=== PATIENT | male | born 1995 | race Two or more races ===

== ENCOUNTER 2021-04-19 11:07 | Emergency (ER) | payer SELFPAY ==
[~2021-04-19] VITALS: Ht 162.6 cm; Wt 57.6 kg
--- NOTE | 2021-04-19 11:07 | NUR ---
[id number] FOR BIZARRE BEHAVIOR BY RUNNING IN PEOPLE`S PROPERTIES. VITALS ARE WITHIN NORMAL LIMITS. BREATHING IS EVEN AND UNLABORED.
[2021-04-19] MEDS ORDERED: IV NS 0.9% 1,000 ML BAG IV ONE (11:30)
--- NOTE | 2021-04-19 11:48 | NUR ---
IV LINE IS ESTABLISHED, BLOOD SPECIMEN COLLECTED AND SENT TO THE LAB. THE LINE IS SALINE LOCKED.
[2021-04-19 12:05] LABS: BASOPHILS # (AUTO) 0.1 K/uL (0.0-0.2); BASOPHILS % (AUTO) 0.5 % (0.0-2.0); EOSINOPHILS % (AUTO) 1.7 % (0.0-6.0); HEMATOCRIT 45 % (39-51); HEMOGLOBIN 15.2 g/dL (13.5-17.5); LYMPHOCYTES # (AUTO) 1.6 K/uL (0.8-4.8); LYMPHOCYTES % (AUTO) 10.7 % (20.0-44.0); MEAN CORPUSCULAR HGB CONC 34 g/dl (31.0-36.0); MEAN CORPUSCULAR VOLUME 89 fL (80-96); MONOCYTES # (AUTO) 1.1 K/uL (0.1-1.30); MONOCYTES % (AUTO) 7.1 % (2.0-12.0); PLATELET COUNT (AUTO) 353 K/uL (150-450); RED BLOOD CELL COUNT(AUTO) 5.04 MIL/uL (4.5-6.0); WHITE BLOOD COUNT (AUTO) 14.9 K/uL (4.3-11.0)
--- NOTE | 2021-04-19 12:11 | NUR ---
URINE COLLECTED AND SENT TO THE LAB
[2021-04-19 12:27] LABS: BILIRUBIN,URINE NEGATIVE (NEGATIVE); COLOR,URINE YELLOW (YELLOW); LEUKOCYTE ESTERASE ,URINE NEGATIVE (NEGATIVE); NITRITE, URINE NEGATIVE (NEGATIVE); PROTEIN,URINE NEGATIVE (NEGATIVE); UGLUCOSE NEGATIVE (NEGATIVE); UROBILINOGEN,URINE 0.2 EU/dL (0.2)
[2021-04-19 12:47] LABS: SERUM AMMONIA 16 umol/L (11-32)
[2021-04-19] MEDS ORDERED: LORAZEPAM INJ 2 MG/ML VIAL IV ONE (13:00)
[2021-04-19] MEDS ORDERED: HALOPERIDOL LACTATE INJ 5 MG/ML VIAL IV ONE (13:00)
[2021-04-19] MEDS ORDERED: diphenhydrAMINE HCL 50 MG/ML VIAL IV ONE (13:00)
--- NOTE | 2021-04-19 13:02 | NUR ---
PT RETURNED TO ER BED [address]
[2021-04-19 13:06] LABS: ALANINE AMINOTRANSFERASE 35 U/L (12-78); ALBUMIN 3.8 g/dL (3.4-5.0); ALKALINE PHOSPHATASE 177 U/L (46-116); ASPARTATE AMINOTRANSFERASE 57 U/L (15-37); BILIRUBIN,DIRECT 0.4 mg/dL (0.0-0.2); BILIRUBIN,TOTAL 1.9 mg/dL (0.2-1.0); CALCIUM, SERUM 9.1 mg/dL (8.5-10.1); CARBON DIOXIDE 26 mmol/L (21-32); CHLORIDE 101 mmol/L (98-107); CREATININE 1.1 mg/dL (0.6-1.3); GLUCOSE 81 mg/dL (74-106); POTASSIUM 3.2 mmol/L (3.5-5.1); SODIUM SERUM 138 mmol/L (136-145); TOTAL PROTEIN, SERUM 8.1 g/dL (6.4-8.2); UREA NITROGEN, BLOOD 18 mg/dL (7-18)
[2021-04-19 13:12] LABS: BACTERIA,URINE Rare /HPF (None Seen); RBC,URINE NONE SEEN /HPF (0-2); WBC,URINE 0-2 /HPF (0-3)
[2021-04-19 13:13] LABS: SQUAMOUS EPITHELIAL CELL,UR Few /HPF (None Seen)
[2021-04-19 13:14] LABS: ACETAMINOPHEN 0 ug/ml (10-30); ALCOHOL, BLOOD < 3 mg/dL (0-0)
[2021-04-19] MEDS ORDERED: diphenhydrAMINE HCL 50 MG/ML VIAL ONE (13:15)
[2021-04-19] MEDS ORDERED: HALOPERIDOL LACTATE INJ 5 MG/ML VIAL ONE (13:15)
[2021-04-19] MEDS ORDERED: LORAZEPAM INJ 2 MG/ML VIAL ONE (13:16)
--- NOTE | 2021-04-19 13:45 | NUR ---
THE PATIENT IS CALM AND COOPERTAIVE. DIRECTABLE. DOES NOT MEET THE CRITERIA TO KEEP THE RESTRAINS. DR ROSENBERG IS MADE AWARE. THE PATIENT IS ASSESED BY DR ROSENBERG. RESTRAINS DISCONTINUED PER DR ROSENBERG.
--- NOTE | 2021-04-19 13:49 | NUR ---
COVID SWAB DONE AND SENT TO LAB
[2021-04-19 14:04] LABS: THYROID STIMULATING HORMONE 1.091 uIU/mL (0.358-3.74)
[2021-04-19] MEDS ORDERED: POTASSIUM CL. PREMIX PERIPHER. 100 ML ONE (14:06)
[2021-04-19] MEDS: POTASSIUM CL. PREMIX PERIPHER. 50 ML IV SCH ×2 (14:15→14:19)
--- NOTE | 2021-04-20 04:59 | NUR ---
A, OX3. AMBULATORY W/ STEADY GAITS. PO INTAKE TOLERATED WELL. STABLE FOR D/C PER MD. IV removed. Catheter intact and site benign. Pressure and 4x4 applied to site. No bleeding noted.Patient discharged to home in stable condition. Written and verbal after care instructions given. Patient verbalizes understanding of instruction.
[2021-04-20 05:01] VITALS: BP 138/78
== END 2021-04-20 05:02 | disposition home or self-care (01) ==
LOC: ER 11:10
DX: T43.621A Poisoning by amphetamines, accidental (unintentional), initial encounter (principal); R00.0 Tachycardia, unspecified; F15.10 Other stimulant abuse, uncomplicated; Y92.410 Unspecified street and highway as the place of occurrence of the external cause; E87.6 Hypokalemia; M62.82 Rhabdomyolysis; Z20.822 Contact with and (suspected) exposure to COVID-19
CPT/HCPCS: 36415; 70450; 71045; 80048; 80076; 80143; 80307; 80320; 81001; 82140; 82550; 82553; 83605; 84443; 85025; 87426; 93005; 96361; 96365; 96366; 96375; 99291; C9803; J1200; J1630; J2060; J3480; J7030; J7040; G0480